=== PATIENT | female | born 1975 | race African-American/Black ===

== ENCOUNTER 2021-03-25 09:59 | Emergency (ER) | payer OTHER ==
[~2021-03-25] VITALS: Ht 172.7 cm; Wt 73.0 kg
[2021-03-25] MEDS ORDERED: MAGNESIUM/ALUMINUM HYDROXIDE/SIMETHICONE 30ML UDC PO STA (10:29)
[2021-03-25] MEDS ORDERED: FAMOTIDINE 20MG/2ML VIAL IV STA (10:29)
[2021-03-25] MEDS ORDERED: AMLO5TAB88 PO (10:29)
[2021-03-25] MEDS ORDERED: SODIUM CHLORIDE 0.9% 1,000 ML IV ONE ×2 (10:30→13:30)
[2021-03-25] MEDS ORDERED: NITROGLYCERIN 0.4MG TABLET SL SL PRN (10:45)
[2021-03-25] MEDS ORDERED: ASPIRIN 325MG EC TABLET PO ONE (10:45)
[2021-03-25 11:07] LABS: BASOPHILS % 1.1 % (0.0-2.0); EOSINOPHILS % 0.8 % (0.0-5.0); HEMOGLOBIN. 12.4 g/dL (12.0-16.0); MEAN CORPUSCULAR HEMOGLOBIN 26.6 pg (28.0-32.0); MEAN PLATELET VOLUME 9.1 fl (7.4-10.4); NEUTROPHILS % 52.1 % (40.0-76.0); PLATELET 251 x1000/uL (130-400); RED BLOOD CELL COUNT 4.65 mill/uL (4.2-5.4); RED CELL DISTRIBUTION WIDTH 13.6 % (11.6-14.6)
[2021-03-25 11:12] LABS: CHLORIDE 109 mEq/L (98-107)
[2021-03-25 11:23] LABS: CLARITY URINE CLEAR (CLEAR); COLOR URINE YELLOW (YELLOW); KETONES URINE NEGATIVE (NEGATIVE); LEUKOCYTE ESTERASE URINE NEGATIVE (NEGATIVE); NITRITE URINE NEGATIVE (NEGATIVE); OCCULT BLOOD URINE NEGATIVE (NEGATIVE); PH URINE 5.5 (4.5-8.0); PROTEIN URINE NEGATIVE (NEGATIVE); SPECIFIC GRAVITY URINE 1.004 (1.005-1.030); UROBILINOGEN URINE 0.2 E.U./dL (0.2-1.0)
[2021-03-25 11:48] LABS: OPIATES URINE SCREEN NEGATIVE (NEGATIVE)
[2021-03-25 11:49] LABS: *AMPHETAMINES SCREEN URINE NEGATIVE (NEGATIVE); *BARBITURATES SCREEN URINE NEGATIVE (NEGATIVE); *BENZODIAZEPINES SCREEN URINE NEGATIVE (NEGATIVE); *COCAINE SCREEN URINE NEGATIVE (NEGATIVE); METHADONE URINE SCREEN NEGATIVE (NEGATIVE); PHENCYCLIDINE URINE SCREEN NEGATIVE (NEGATIVE)
[2021-03-25 11:50] LABS: CANNABINOID URINE SCREEN PRESUMTIVE POSITIVE (NEGATIVE)
[2021-03-25] MEDS ORDERED: MAGNESIUM/ALUMINUM HYDROXIDE/SIMETHICONE 30ML UDC PO NR (12:30)
[2021-03-25] MEDS ORDERED: FAMOTIDINE 20MG/2ML VIAL IV NR (12:30)
[2021-03-25] MEDS ORDERED: KETOROLAC 15MG/ML VIAL IV ONE (14:15)
[2021-03-25] MEDS ORDERED: ONDA4TAB5 MT (14:55)
[2021-03-25 15:23] VITALS: BP 133/81
== END 2021-03-25 15:27 | disposition home or self-care (01) ==
LOC: ER 09:59
DX: R42 Dizziness and giddiness (principal); I10 Essential (primary) hypertension
CPT/HCPCS: 36415; 71045; 80053; 80305; 81003; 82962; 83690; 83880; 84484; 85025; 93005; 96361; 96374; 96375; 99285; J1885; J3490; J7030

== ENCOUNTER 2021-03-26 11:11 | Inpatient (IN) | payer OTHER ==
[~2021-03-26] VITALS: Ht 172.7 cm; Wt 72.6 kg
[~2021-03-26 11:11] MED LIST: AMLO5TAB88 PO; ONDA4TAB5 MT
[2021-03-26] MEDS ORDERED: MECLIZINE 25MG TABLET PO ONE (12:45)
[2021-03-26] MEDS ORDERED: SODIUM CHLORIDE 0.9% 1,000 ML IV ONE (12:45)
[2021-03-26 13:16] LABS: BASOPHILS % 0.7 % (0.0-2.0); EOSINOPHILS % 0.7 % (0.0-5.0); HEMATOCRIT. 38.6 % (36.0-48.0); HEMOGLOBIN. 12.5 g/dL (12.0-16.0); LYMPHOCYTES % 28.8 % (20.0-50.0); MEAN CORPUSCULAR VOLUME 83.4 fL (81.0-99.0); MEAN PLATELET VOLUME 8.2 fl (7.4-10.4); MONOCYTES % 4.5 % (2.0-8.0); NEUTROPHILS % 65.3 % (40.0-76.0); PLATELET 260 x1000/uL (130-400); RED BLOOD CELL COUNT 4.63 mill/uL (4.2-5.4); RED CELL DISTRIBUTION WIDTH 13.9 % (11.6-14.6)
[2021-03-26 13:21] LABS: CHLORIDE 110 mEq/L (98-107)
[2021-03-26] MEDS ORDERED: MECLIZINE 25MG TABLET PO NR (18:10)
[2021-03-26] MEDS ORDERED: ONDANSETRON HCL 4MG/2ML INJ IV PRN (18:45)
[2021-03-26] MEDS ORDERED: DOCUSATE SODIUM 100MG CAPSULE PO PRN (18:45)
[2021-03-26] MEDS ORDERED: CLONIDINE 0.1MG TABLET PO PRN (18:45)
[2021-03-26] MEDS ORDERED: IPRATROPIUM/ALBUTEROL 0.5-3(2.5)MG/3ML NEB HHN PRN (18:45)
[2021-03-26] MEDS ORDERED: ACETAMINOPHEN 325MG TABLET PO PRN ×2 (18:45)
[2021-03-26] MEDS: SODIUM CHLORIDE 0.9% 1,000 ML IV SCH (18:48)
[2021-03-26 19:00] LABS: HCG SCREEN NEGATIVE
[2021-03-26 19:08] LABS: CLARITY URINE CLEAR (CLEAR); COLOR URINE YELLOW (YELLOW); KETONES URINE NEGATIVE (NEGATIVE); LEUKOCYTE ESTERASE URINE NEGATIVE (NEGATIVE); NITRITE URINE NEGATIVE (NEGATIVE); OCCULT BLOOD URINE NEGATIVE (NEGATIVE); PROTEIN URINE NEGATIVE (NEGATIVE); SPECIFIC GRAVITY URINE 1.008 (1.005-1.030)
[2021-03-26 19:20] LABS: *AMPHETAMINES SCREEN URINE NEGATIVE (NEGATIVE); *BARBITURATES SCREEN URINE NEGATIVE (NEGATIVE); *BENZODIAZEPINES SCREEN URINE NEGATIVE (NEGATIVE); *COCAINE SCREEN URINE NEGATIVE (NEGATIVE); METHADONE URINE SCREEN NEGATIVE (NEGATIVE); OPIATES URINE SCREEN NEGATIVE (NEGATIVE)
[2021-03-26 19:21] LABS: PHENCYCLIDINE URINE SCREEN NEGATIVE (NEGATIVE)
[2021-03-26 19:26] LABS: CANNABINOID URINE SCREEN PRESUMTIVE POSITIVE (NEGATIVE)
[2021-03-26 22:25] VITALS: BP 128/87
[2021-03-26] MEDS: HYDROCODONE/ACETAMINOPHEN 5/325MG TABLET PO PRN (22:58)
[2021-03-27] VITALS: BP 117/60
[2021-03-27 04:00] VITALS: BP 122/81
[2021-03-27] MEDS: SODIUM CHLORIDE 0.9% 1,000 ML IV SCH ×3 (05:35→23:55)
[2021-03-27 06:53] LABS: BASOPHILS % 0.8 % (0.0-2.0); EOSINOPHILS % 1.8 % (0.0-5.0); HEMATOCRIT. 34.9 % (36.0-48.0); HEMOGLOBIN. 11.6 g/dL (12.0-16.0); LYMPHOCYTES % 42.6 % (20.0-50.0); MEAN CORPUSCULAR HEMOGLOBIN 27.8 pg (28.0-32.0); MEAN CORPUSCULAR VOLUME 83.8 fL (81.0-99.0); MONOCYTES % 8.3 % (2.0-8.0); NEUTROPHILS % 46.5 % (40.0-76.0); PLATELET 235 x1000/uL (130-400); RED BLOOD CELL COUNT 4.16 mill/uL (4.2-5.4); RED CELL DISTRIBUTION WIDTH 13.5 % (11.6-14.6)
[2021-03-27 06:56] LABS: CHLORIDE 112 mEq/L (98-107)
[2021-03-27 08:00] VITALS: BP_SYST 122; BP_SYST 137; BP_SYST 142; BP_DIAS 76; BP_DIAS 83; BP_DIAS 97
[2021-03-27] MEDS: HYDROCODONE/ACETAMINOPHEN 5/325MG TABLET PO PRN ×2 (10:51→17:40)
[2021-03-27 12:00] VITALS: BP 121/75
[2021-03-27] MEDS: AMLODIPINE 5MG TABLET PO SCH (14:32)
[2021-03-27 16:00] VITALS: BP 135/80
[2021-03-27 20:00] VITALS: BP 126/72
[2021-03-28] VITALS (7 sets, daily range): BP systolic 118–141; BP diastolic 72–91
[2021-03-28] MEDS: HYDROCODONE/ACETAMINOPHEN 5/325MG TABLET PO PRN ×3 (05:38→21:03)
[2021-03-28] MEDS: AMLODIPINE 5MG TABLET PO SCH (08:59)
[2021-03-28 09:06] LABS: LDL CHOLESTEROL 66 mg/dL (5-100)
[2021-03-28 09:08] LABS: HDL CHOLESTEROL 67 mg/dL (40-59)
[2021-03-28 11:10] LABS: CHLORIDE 108 mEq/L (98-107)
[2021-03-28 12:25] LABS: EOSINOPHILS % 1.6 % (0.0-5.0); HEMATOCRIT. 39.4 % (36.0-48.0); HEMOGLOBIN. 12.6 g/dL (12.0-16.0); LYMPHOCYTES % 34.9 % (20.0-50.0); MEAN CORPUSCULAR HEMOGLOBIN 26.7 pg (28.0-32.0); MEAN CORPUSCULAR VOLUME 83.6 fL (81.0-99.0); MEAN PLATELET VOLUME 8.7 fl (7.4-10.4); MONOCYTES % 7.5 % (2.0-8.0); PLATELET 271 x1000/uL (130-400); RED BLOOD CELL COUNT 4.72 mill/uL (4.2-5.4); RED CELL DISTRIBUTION WIDTH 13.5 % (11.6-14.6)
[2021-03-28] MEDS ORDERED: MECLIZINE 12.5MG TABLET PO PRN (15:30)
[2021-03-28] MEDS: SODIUM CHLORIDE 0.9% 1,000 ML IV SCH ×2 (17:20→20:45)
[2021-03-28] MEDS: LORAZEPAM 0.5MG TABLET PO PRN (17:58)
[2021-03-29] VITALS: BP 122/78
[2021-03-29 04:00] VITALS: BP 120/63
[2021-03-29] MEDS: SODIUM CHLORIDE 0.9% 1,000 ML IV SCH (06:09)
[2021-03-29] MEDS: LORAZEPAM 0.5MG TABLET PO PRN (06:09)
[2021-03-29 07:56] VITALS: BP 130/80
[2021-03-29] MEDS: AMLODIPINE 5MG TABLET PO SCH (08:59)
[2021-03-29 12:00] VITALS: BP 123/85
[2021-03-29] MEDS ORDERED: MECL-217 PO (13:38)
[2021-03-29] MEDS ORDERED: LORA-249 MT (13:38)
[2021-03-29 14:39] VITALS: BP 117/78
[2021-03-29 15:54] VITALS: BP 117/78
== END 2021-03-29 17:00 | disposition home or self-care (01) | DRG 74 ==
LOC: ER 11:11 → 7EST 18:14 → ENRESERV 21:09
PROVIDERS: ADMIT Internal Medicine; ATTEND Internal Medicine
DX: G90.9 Disorder of the autonomic nervous system, unspecified (principal); J90 Pleural effusion, not elsewhere classified; I95.1 Orthostatic hypotension; I11.9 Hypertensive heart disease without heart failure; F41.9 Anxiety disorder, unspecified; D64.9 Anemia, unspecified; Z87.442 Personal history of urinary calculi; Z87.891 Personal history of nicotine dependence
CPT/HCPCS: 36415; 71045; 76604; 80048; 80053; 80061; 80305; 81003; 82962; 83735; 83880; 84439; 84443; 84481; 84484; 84703; 85025; 85379; 93005; 93306; 93880; 99285; J7030; J8597

== ENCOUNTER 2021-07-17 00:27 | Emergency (ER) | payer OTHER ==
[~2021-07-17] VITALS: Ht 172.7 cm; Wt 71.0 kg
[~2021-07-17 00:27] MED LIST changes: +LORA-249 MT; +MECL-217 PO
[2021-07-17 00:35] VITALS: BP 146/89
[2021-07-17 01:24] LABS: BASOPHILS % 0.7 % (0.0-2.0); EOSINOPHILS % 1.5 % (0.0-5.0); LYMPHOCYTES % 30.2 % (20.0-50.0); MEAN CORPUSCULAR HEMOGLOBIN 27.5 pg (28.0-32.0); MEAN CORPUSCULAR VOLUME 82.3 fL (81.0-99.0); MEAN PLATELET VOLUME 8.3 fl (7.4-10.4); MONOCYTES % 6.8 % (2.0-8.0); NEUTROPHILS % 60.8 % (40.0-76.0); PLATELET 255 x1000/uL (130-400); RED BLOOD CELL COUNT 4.38 mill/uL (4.2-5.4); RED CELL DISTRIBUTION WIDTH 13.4 % (11.6-14.6)
[2021-07-17 01:31] LABS: CHLORIDE 108 mEq/L (98-107)
[2021-07-17 01:46] LABS: CLARITY URINE CLEAR (CLEAR); COLOR URINE YELLOW (YELLOW); KETONES URINE TRACE (NEGATIVE); LEUKOCYTE ESTERASE URINE NEGATIVE (NEGATIVE); NITRITE URINE NEGATIVE (NEGATIVE); OCCULT BLOOD URINE NEGATIVE (NEGATIVE); PH URINE 6.5 (4.5-8.0); PROTEIN URINE NEGATIVE (NEGATIVE); SPECIFIC GRAVITY URINE 1.028 (1.005-1.030)
[2021-07-17] MEDS ORDERED: MAGNESIUM/ALUMINUM HYDROXIDE/SIMETHICONE 30ML UDC PO ONE (02:00)
[2021-07-17] MEDS ORDERED: FAMOTIDINE 20MG TABLET PO ONE (02:00)
[2021-07-17] MEDS ORDERED: MAG-55 MT (03:16)
[2021-07-17] MEDS ORDERED: FAMO-135 MT (03:16)
[2021-07-18] MEDS ORDERED: MECL-159 MT (03:48)
== END 2021-07-17 03:30 | disposition home or self-care (01) ==
LOC: ER 00:27
DX: R10.13 Epigastric pain (principal); R20.2 Paresthesia of skin; I10 Essential (primary) hypertension
CPT/HCPCS: 36415; 80053; 81003; 85025; 93005; 99284

== ENCOUNTER 2021-07-17 08:29 | Emergency (ER) | payer OTHER ==
[~2021-07-17] VITALS: Ht 172.7 cm; Wt 68.0 kg
[~2021-07-17 08:29] MED LIST changes: +FAMO-135 MT; +MAG-55 MT
[2021-07-17 09:33] VITALS: BP 140/84
[2021-07-18] MEDS ORDERED: MECL-159 MT (03:48)
== END 2021-07-17 09:40 | disposition home or self-care (01) ==
LOC: ER 08:29
DX: G47.30 Sleep apnea, unspecified (principal); I10 Essential (primary) hypertension
CPT/HCPCS: 99281

== ENCOUNTER 2021-07-17 23:27 | Emergency (ER) | payer OTHER ==
[~2021-07-17] VITALS: Ht 172.7 cm; Wt 67.0 kg
[2021-07-18] MEDS ORDERED: SODIUM CHLORIDE 0.9% 1,000 ML IV ONE (00:15)
[2021-07-18] MEDS ORDERED: MECLIZINE 25MG TABLET PO SCH (00:30)
[2021-07-18] MEDS ORDERED: LORAZEPAM 2MG/ML CPJ IV SCH (00:30)
[2021-07-18 01:02] LABS: BASOPHILS % 0.9 % (0.0-2.0); EOSINOPHILS % 1.6 % (0.0-5.0); HEMOGLOBIN. 11.7 g/dL (12.0-16.0); LYMPHOCYTES % 35.3 % (20.0-50.0); MEAN CORPUSCULAR HEMOGLOBIN 27.5 pg (28.0-32.0); MEAN CORPUSCULAR VOLUME 82.3 fL (81.0-99.0); MEAN PLATELET VOLUME 8.2 fl (7.4-10.4); MONOCYTES % 7.6 % (2.0-8.0); NEUTROPHILS % 54.6 % (40.0-76.0); PLATELET 248 x1000/uL (130-400); RED BLOOD CELL COUNT 4.25 mill/uL (4.2-5.4); RED CELL DISTRIBUTION WIDTH 13.2 % (11.6-14.6)
[2021-07-18 01:08] LABS: CHLORIDE 108 mEq/L (98-107)
[2021-07-18 01:14] LABS: ETHANOL BLOOD < 10 mg/dL
[2021-07-18 01:18] LABS: HCG SCREEN NEGATIVE
[2021-07-18] MEDS ORDERED: MECL-159 MT (03:48)
[2021-07-18] MEDS ORDERED: IOHEXOL-350 100 ML BOTTLE ONE (06:19)
[2021-07-18] MEDS ORDERED: ACETAMINOPHEN 160MG/5ML UDC PO ONE (07:15)
[2021-07-18 08:02] VITALS: BP 119/85
[2021-07-18] MEDS ORDERED: MECLIZINE 25MG TABLET PO ONE (09:30)
== END 2021-07-18 09:15 | disposition home or self-care (01) ==
LOC: ER 23:27
DX: R42 Dizziness and giddiness (principal); R55 Syncope and collapse; I10 Essential (primary) hypertension; Z98.890 Other specified postprocedural states; Z79.899 Other long term (current) drug therapy
CPT/HCPCS: 36415; 70496; 70498; 80053; 80320; 82962; 84703; 85025; 93005; 96361; 96374; 99285; J2060; Q9967; J8597; G0480

== ENCOUNTER 2022-11-08 20:53 | Inpatient (IN) | payer OTHER ==
[~2022-11-08] VITALS: Ht 172.7 cm; Wt 87.3 kg
[~2022-11-08 20:53] MED LIST changes: +MECL-159 MT
[2022-11-08 22:12] LABS: BASOPHILS % 0.5 % (0.0-2.0); EOSINOPHILS % 0.9 % (0.0-5.0); HEMATOCRIT. 36.8 % (36.0-48.0); HEMOGLOBIN. 12.3 g/dL (12.0-16.0); LYMPHOCYTES % 10.8 % (20.0-50.0); MEAN CORPUSCULAR HEMOGLOBIN 28.6 pg (28.0-32.0); MEAN CORPUSCULAR VOLUME 85.7 fL (81.0-99.0); MEAN PLATELET VOLUME 8.5 fl (7.4-10.4); MONOCYTES % 6.1 % (2.0-8.0); NEUTROPHILS % 81.7 % (40.0-76.0); PLATELET 233 x1000/uL (130-400); RED CELL DISTRIBUTION WIDTH 14.8 % (11.6-14.6)
[2022-11-08 22:20] LABS: CHLORIDE 104 mEq/L (98-107)
[2022-11-08] MEDS ORDERED: MORPHINE SULFATE 4 MG/ML CPJ (NOT FOR IM USE) IV STA (23:35)
[2022-11-08] MEDS ORDERED: ONDANSETRON HCL 4MG/2ML INJ IV STA (23:35)
[2022-11-08] MEDS ORDERED: SODIUM CHLORIDE 0.9% 1,000 ML IV ONE (23:45)
[2022-11-09 00:44] LABS: CLARITY URINE TURBID (CLEAR); COLOR URINE ORANGE (YELLOW); KETONES URINE TRACE (NEGATIVE); LEUKOCYTE ESTERASE URINE NEGATIVE (NEGATIVE); NITRITE URINE NEGATIVE (NEGATIVE); OCCULT BLOOD URINE NEGATIVE (NEGATIVE); PH URINE 5.5 (4.5-8.0); PROTEIN URINE 2+ (NEGATIVE); SPECIFIC GRAVITY URINE 1.039 (1.005-1.030)
[2022-11-09] MEDS ORDERED: ACETAMINOPHEN 325MG TABLET PO PRN ×2 (03:00)
[2022-11-09] MEDS ORDERED: ONDANSETRON HCL 4MG/2ML INJ IV PRN ×2 (03:00→05:00)
[2022-11-09] MEDS ORDERED: IPRATROPIUM/ALBUTEROL 0.5-3(2.5)MG/3ML NEB HHN PRN (03:00)
[2022-11-09] MEDS ORDERED: CLONIDINE 0.1MG TABLET PO PRN ×2 (03:00→05:00)
[2022-11-09] MEDS ORDERED: SODIUM CHLORIDE 0.9% 1,000 ML IV SCH ×2 (03:00→05:00)
[2022-11-09] MEDS ORDERED: HYDROCODONE/ACETAMINOPHEN 5/325MG TABLET PO PRN ×2 (03:00→05:00)
[2022-11-09] MEDS ORDERED: NALOXONE HCL 0.4MG/ML VIAL IV PRN (03:30)
[2022-11-09] MEDS: PANTOPRAZOLE SODIUM 40 MG/VIAL IV SCH ×3 (03:54→19:41)
[2022-11-09] MEDS: MORPHINE SULFATE 2 MG/ML CPJ (NOT FOR IM USE) IV PRN ×2 (03:55→09:32)
[2022-11-09] MEDS ORDERED: IOHEXOL-300 100 ML BOTTLE ONE (03:57)
[2022-11-09 04:00] VITALS: BP 164/93; PULSE 75; RESP 20; TEMP 99.3
[2022-11-09] MEDS ORDERED: DEXT 5%/0.45% NACL KCL 40MEQ/L 1,000 ML IV NR (04:00)
[2022-11-09] MEDS ORDERED: DEXT 5%/0.45% NACL KCL 40MEQ/L 1,000 ML IV STA (04:52)
[2022-11-09] MEDS ORDERED: MORPHINE SULFATE 2 MG/ML CPJ (NOT FOR IM USE) IV PRN (05:00)
[2022-11-09] MEDS ORDERED: DEXT 5%/0.45% NACL KCL 40MEQ/L 1,000 ML IV SCH (05:45)
[2022-11-09 07:05] LABS: BASOPHILS % 0.4 % (0.0-2.0); EOSINOPHILS % 1.2 % (0.0-5.0); HEMATOCRIT. 36.1 % (36.0-48.0); HEMOGLOBIN. 11.9 g/dL (12.0-16.0); LYMPHOCYTES % 11.7 % (20.0-50.0); MEAN CORPUSCULAR HEMOGLOBIN 28.5 pg (28.0-32.0); MEAN CORPUSCULAR VOLUME 86.1 fL (81.0-99.0); MEAN PLATELET VOLUME 8.5 fl (7.4-10.4); MONOCYTES % 6.9 % (2.0-8.0); NEUTROPHILS % 79.8 % (40.0-76.0); PLATELET 208 x1000/uL (130-400); RED BLOOD CELL COUNT 4.19 mill/uL (4.2-5.4); RED CELL DISTRIBUTION WIDTH 14.7 % (11.6-14.6)
[2022-11-09 08:00] VITALS: BP 128/86; PULSE 81; RESP 18; TEMP 97.6
[2022-11-09 08:10] LABS: CHLORIDE 105 mEq/L (98-107)
[2022-11-09 08:25] LABS: AMYLASE 83 IU/L (25-115); HDL CHOLESTEROL 76 mg/dL (40-59); LDL CHOLESTEROL 87 mg/dL (5-100); T4 FREE 0.96 ng/dL (0.76-1.46)
[2022-11-09] MEDS ORDERED: AMLODIPINE 10MG TABLET PO SCH (09:00)
[2022-11-09] MEDS: ENOXAPARIN 40MG/0.4ML SYR SUBCUT SCH (09:33)
[2022-11-09] MEDS: AMLODIPINE 10MG TABLET PO SCH (09:33)
[2022-11-09] MEDS ORDERED: POTASSIUM CHLORIDE INJ 40 MEQ in DEXT 5% WATER 250 ML IV ONE (11:00)
[2022-11-09 12:00] VITALS: BP 136/84; PULSE 80; RESP 19; TEMP 98
[2022-11-09 12:57] LABS: *AMPHETAMINES SCREEN URINE NEGATIVE (NEGATIVE); *BARBITURATES SCREEN URINE NEGATIVE (NEGATIVE); *BENZODIAZEPINES SCREEN URINE NEGATIVE (NEGATIVE); *COCAINE SCREEN URINE NEGATIVE (NEGATIVE); METHADONE URINE SCREEN NEGATIVE (NEGATIVE); OPIATES URINE SCREEN NEGATIVE (NEGATIVE); PHENCYCLIDINE URINE SCREEN NEGATIVE (NEGATIVE)
[2022-11-09 12:59] LABS: CANNABINOID URINE SCREEN PRESUMTIVE POSITIVE (NEGATIVE)
[2022-11-09] MEDS: DEXT 5%/0.9% NACL 1,000 ML IV SCH ×3 (15:55→23:35)
[2022-11-09 16:00] VITALS: BP 145/89; PULSE 71; RESP 16; TEMP 98.2
[2022-11-09 16:36] LABS: CHLORIDE 106 mEq/L (98-107)
[2022-11-09 16:41] LABS: ETHANOL BLOOD < 10 mg/dL (-10)
[2022-11-09 20:00] VITALS: BP 147/88; PULSE 65; RESP 18; TEMP 97.2
[2022-11-10] VITALS: BP 142/90; PULSE 77; RESP 18; TEMP 97.3
[2022-11-10 04:00] VITALS: BP 127/85; PULSE 69; RESP 18; TEMP 97.3
[2022-11-10 05:45] LABS: BASOPHILS % 0.5 % (0.0-2.0); EOSINOPHILS % 2.3 % (0.0-5.0); HEMATOCRIT. 34.4 % (36.0-48.0); HEMOGLOBIN. 11.2 g/dL (12.0-16.0); LYMPHOCYTES % 16.9 % (20.0-50.0); MEAN CORPUSCULAR HEMOGLOBIN 28.3 pg (28.0-32.0); MEAN CORPUSCULAR VOLUME 86.7 fL (81.0-99.0); MEAN PLATELET VOLUME 8.9 fl (7.4-10.4); MONOCYTES % 8.5 % (2.0-8.0); NEUTROPHILS % 71.8 % (40.0-76.0); PLATELET 222 x1000/uL (130-400); RED BLOOD CELL COUNT 3.96 mill/uL (4.2-5.4); RED CELL DISTRIBUTION WIDTH 14.9 % (11.6-14.6)
[2022-11-10] MEDS: DEXT 5%/0.9% NACL 1,000 ML IV SCH (06:10)
[2022-11-10 06:28] LABS: CHLORIDE 109 mEq/L (98-107)
[2022-11-10] MEDS: AMLODIPINE 10MG TABLET PO SCH (09:53)
[2022-11-10] MEDS: ENOXAPARIN 40MG/0.4ML SYR SUBCUT SCH (09:54)
[2022-11-10] MEDS ORDERED: AMLODIPINE 5MG TABLET PO SCH (11:30)
[2022-11-10 11:33] LABS: CLARITY URINE CLOUDY (CLEAR); COLOR URINE DARK YELLOW (YELLOW); KETONES URINE TRACE (NEGATIVE); LEUKOCYTE ESTERASE URINE NEGATIVE (NEGATIVE); NITRITE URINE NEGATIVE (NEGATIVE); OCCULT BLOOD URINE NEGATIVE (NEGATIVE); PH URINE 5.5 (4.5-8.0); PROTEIN URINE 1+ (NEGATIVE); SPECIFIC GRAVITY URINE 1.026 (1.005-1.030)
[2022-11-10] MEDS ORDERED: SULF1TAB48 MT (12:46)
[2022-11-10] MEDS ORDERED: CEFTRIAXONE 1,000 MG in DEXTROSE 5% WATER 50 ML IV SCH (13:00)
[2022-11-10 15:19] VITALS: BP 138/80; PULSE 74; TEMP 98.1; O2SAT 100
[2022-11-11] MEDS ORDERED: FAMOTIDINE 20MG/2ML VIAL IV SCH (09:00)
[2022-11-11] MEDS ORDERED: AMLODIPINE 5MG TABLET PO SCH (09:00)
== END 2022-11-10 17:10 | disposition home or self-care (01) | DRG 439 ==
LOC: ER 20:53 → 8WST 11-09 02:00 → EDBEDREQTM 11-09 02:17 → EDBEDREQ 11-09 02:17 → ENRESERV 11-09 02:28 → EDBEDREQSVC 11-09 03:24 → ENRESERV 11-09 03:44 → ER 11-09 04:06
PROVIDERS: ADMIT Internal Medicine; ATTEND Internal Medicine
DX: K85.90 Acute pancreatitis without necrosis or infection, unspecified (principal); N39.0 Urinary tract infection, site not specified; I10 Essential (primary) hypertension; E87.6 Hypokalemia; R73.9 Hyperglycemia, unspecified; F41.9 Anxiety disorder, unspecified
CPT/HCPCS: 36415; 74177; 76705; 80048; 80053; 80061; 80305; 80320; 81003; 82150; 82962; 83036; 83605; 84145; 84439; 84443; 85025; 99285; C9113; J0696; J1650; J2270; J2405; J7030; J7042; J7060; Q9967; G0480

== ENCOUNTER 2022-12-26 11:04 | Inpatient (IN) | payer OTHER ==
[~2022-12-26] VITALS: Ht 172.7 cm; Wt 89.8 kg
[~2022-12-26 11:04] MED LIST changes: -LORA-249 MT; +SULF1TAB48 MT
[2022-12-26 11:56] LABS: BASOPHILS % 0.4 % (0.0-2.0); EOSINOPHILS % 0.3 % (0.0-5.0); HEMATOCRIT. 40.4 % (36.0-48.0); HEMOGLOBIN. 13.6 g/dL (12.0-16.0); LYMPHOCYTES % 11.3 % (20.0-50.0); MEAN CORPUSCULAR HEMOGLOBIN 28.7 pg (28.0-32.0); MEAN CORPUSCULAR HGB CONC 33.7 g/dL (31.0-37.0); MEAN PLATELET VOLUME 8.3 fl (7.4-10.4); PLATELET 278 x1000/uL (130-400); RED BLOOD CELL COUNT 4.75 mill/uL (4.2-5.4); RED CELL DISTRIBUTION WIDTH 15.7 % (11.6-14.6); WHITE BLOOD COUNT 9.3 x1000/uL (4.5-11.0)
[2022-12-26 12:03] LABS: CHLORIDE 105 mEq/L (98-107); INDEX HEMOLYSI 1 (1-3); INDEX ICTERIC 1 (1-4); INDEX LIPEMIC 1 (1-3); POTASSIUM 3.2 mEq/L (3.5-5.1); SODIUM 133 mEq/L (136-145)
[2022-12-26 12:09] LABS: ALANINE AMINOTRANSFERASE 35 IU/L (13-61); ALBUMIN 4.1 g/dL (3.4-5.0); ASPARTATE AMINOTRANSFERASE 26 IU/L (15-37); CALCIUM 9.4 mg/dL (8.5-10.1); CARBON DIOXIDE 25 mEq/L (21-32); CREATININE 0.6 mg/dL (0.6-1.3); GLUCOSE 161 mg/dL (70-105); PROTEIN TOTAL 7.9 g/dL (6.0-8.3); UREA NITROGEN BLOOD 8 mg/dL (7-21)
[2022-12-26] MEDS ORDERED: KETOROLAC 30MG/ML VIAL IV STA (12:33)
[2022-12-26] MEDS ORDERED: SODIUM CHLORIDE 0.9% 1,000 ML IV ONE (12:45)
[2022-12-26 13:42] LABS: HCG SCREEN NEGATIVE
[2022-12-26] MEDS ORDERED: KETOROLAC 15MG/ML VIAL IV NR (15:15)
[2022-12-26] MEDS ORDERED: MORPHINE SULFATE 4 MG/ML CPJ (NOT FOR IM USE) IV STA (15:31)
[2022-12-26] MEDS ORDERED: ONDANSETRON HCL 4MG/2ML INJ IV STA (15:31)
[2022-12-26 16:07] LABS: CLARITY URINE CLOUDY (CLEAR); COLOR URINE DARK YELLOW (YELLOW); GLUCOSE URINE 2+ (NEGATIVE); KETONES URINE 3+ (NEGATIVE); LEUKOCYTE ESTERASE URINE NEGATIVE (NEGATIVE); NITRITE URINE NEGATIVE (NEGATIVE); OCCULT BLOOD URINE NEGATIVE (NEGATIVE); PH URINE 5.5 (4.5-8.0); PROTEIN URINE 1+ (NEGATIVE); SPECIFIC GRAVITY URINE 1.042 (1.005-1.030)
[2022-12-26 16:09] LABS: SQUAMOUS EPITHELIAL CELL URINE 2+ /lpf (RARE/1+); WBC URINE 0-2 /hpf (0-2)
[2022-12-26 16:48] LABS: BACTERIA URINE 2+; RBC URINE 0-2 /hpf (0-2)
[2022-12-26 16:49] LABS: YEAST URINE FEW
[2022-12-26] MEDS ORDERED: MORPHINE SULFATE 2 MG/ML CPJ (NOT FOR IM USE) IV ONE (17:00)
[2022-12-26] MEDS ORDERED: AMLODIPINE 5MG TABLET PO ONE (18:45)
[2022-12-26] MEDS ORDERED: NALOXONE HCL 0.4MG/ML VIAL IV PRN (19:15)
[2022-12-26] MEDS ORDERED: DIPHENHYDRAMINE 50MG/ML VIAL IV PRN (19:15)
[2022-12-26] MEDS ORDERED: CLONIDINE 0.1MG TABLET PO PRN (19:15)
[2022-12-26] MEDS: MORPHINE SULFATE 4 MG/ML CPJ (NOT FOR IM USE) IV PRN ×2 (19:40→21:33)
[2022-12-26 20:00] VITALS: BP 176/87; PULSE 82; RESP 18; TEMP 98.2
[2022-12-26] MEDS ORDERED: SODIUM CHL 0.45% + KCL 20MEQ/L 1,000 ML IV SCH (20:00)
[2022-12-27] VITALS (9 sets, daily range): BP systolic 158–193; BP diastolic 69–121; PULSE 80–114; RESP 18–20; TEMP 97.5–98
[2022-12-27] MEDS: MORPHINE SULFATE 4 MG/ML CPJ (NOT FOR IM USE) IV PRN ×6 (00:01→22:13)
[2022-12-27] MEDS: LORAZEPAM 2MG/ML CPJ IV PRN ×2 (02:20→15:51)
[2022-12-27] MEDS: SODIUM CHL 0.45% + KCL 20MEQ/L 1,000 ML IV SCH ×2 (05:19→17:15)
[2022-12-27 07:22] LABS: HEMATOCRIT. 41.7 % (36.0-48.0); HEMOGLOBIN. 13.9 g/dL (12.0-16.0); MEAN CORPUSCULAR HEMOGLOBIN 28.5 pg (28.0-32.0); MEAN CORPUSCULAR HGB CONC 33.4 g/dL (31.0-37.0); MEAN CORPUSCULAR VOLUME 85.4 fL (81.0-99.0); MEAN PLATELET VOLUME 9.5 fl (7.4-10.4); PLATELET 224 x1000/uL (130-400); RED BLOOD CELL COUNT 4.88 mill/uL (4.2-5.4); RED CELL DISTRIBUTION WIDTH 15.4 % (11.6-14.6); WHITE BLOOD COUNT 12.4 x1000/uL (4.5-11.0)
[2022-12-27 07:31] LABS: DIFFERENTIAL COMMENT 1
[2022-12-27 07:55] LABS: CHLORIDE 100 mEq/L (98-107); INDEX HEMOLYSI 2 (1-3); INDEX ICTERIC 1 (1-4); INDEX LIPEMIC 1 (1-3); POTASSIUM 3.3 mEq/L (3.5-5.1); SODIUM 131 mEq/L (136-145)
[2022-12-27 08:13] LABS: ALANINE AMINOTRANSFERASE 24 IU/L (13-61); ALBUMIN 3.5 g/dL (3.4-5.0); ASPARTATE AMINOTRANSFERASE 23 IU/L (15-37); BILIRUBIN TOTAL 0.7 mg/dL (0.1-1.0); CALCIUM 9.3 mg/dL (8.5-10.1); CARBON DIOXIDE 22 mEq/L (21-32); CREATININE 0.4 mg/dL (0.6-1.3); GLUCOSE 138 mg/dL (70-105); PHOSPHORUS 3.1 mg/dL (2.5-4.9); PROTEIN TOTAL 7.8 g/dL (6.0-8.3); UREA NITROGEN BLOOD 4 mg/dL (7-21)
[2022-12-27 10:59] LABS: PLATELET ESTIMATE NORMAL
[2022-12-27] MEDS ORDERED: ONDANSETRON HCL 4MG/2ML INJ IV PRN (13:30)
[2022-12-27] MEDS: CLONIDINE 0.2MG TABLET PO PRN ×2 (14:18→23:45)
[2022-12-27 15:49] LABS: HEPATITIS B SURFACE ANTIGEN NEGATIVE
[2022-12-27 16:15] LABS: HEPATITIS C VIR.AB 0.11 INDEXVAL (0.00-0.80)
[2022-12-27 16:16] LABS: HEPATITIS B CORE AB IGM NEGATIVE
[2022-12-27] MEDS: METOCLOPRAMIDE HCL 10MG/2ML VIAL IV SCH ×2 (17:15→23:48)
[2022-12-27 17:49] LABS: HEPATITIS A AB IGM NEGATIVE (NEGATIVE)
[2022-12-28] VITALS: BP 164/105; PULSE 89; RESP 20; TEMP 98.2
[2022-12-28] MEDS: SODIUM CHL 0.45% + KCL 20MEQ/L 1,000 ML IV SCH ×2 (02:25→12:56)
[2022-12-28] MEDS: MORPHINE SULFATE 4 MG/ML CPJ (NOT FOR IM USE) IV PRN (02:48)
[2022-12-28 04:00] VITALS: BP 133/99; PULSE 94; RESP 20; TEMP 98.5
[2022-12-28] MEDS: METOCLOPRAMIDE HCL 10MG/2ML VIAL IV SCH ×2 (06:35→12:56)
[2022-12-28 08:00] VITALS: BP 126/88; PULSE 94; RESP 20; TEMP 96.3
[2022-12-28] MEDS ORDERED: PANTOPRAZOLE SODIUM 40 MG/VIAL IV SCH (09:00)
[2022-12-28 12:00] VITALS: BP 17/82; PULSE 84; RESP 21; TEMP 97.4
[2022-12-28] MEDS ORDERED: HYDROCODONE/ACETAMINOPHEN 10/325MG TABLET PO PRN ×2 (13:15→13:30)
[2022-12-28] MEDS ORDERED: MORPHINE SULFATE 4 MG/ML CPJ (NOT FOR IM USE) IV PRN ×2 (13:15→13:45)
[2022-12-28 13:40] VITALS: RESP 21
[2022-12-28 14:53] VITALS: BP 117/82; PULSE 82; TEMP 97.1; O2SAT 99
== END 2022-12-28 15:28 | disposition home or self-care (01) | DRG 439 ==
LOC: ER 11:04 → EDBEDREQ 14:55 → 6EST 16:26 → EDBEDREQ 16:46 → EDBEDREQTM 16:46
PROVIDERS: ADMIT Internal Medicine; ATTEND Internal Medicine
DX: K85.90 Acute pancreatitis without necrosis or infection, unspecified (principal); E87.1 Hypo-osmolality and hyponatremia; K76.0 Fatty (change of) liver, not elsewhere classified; I10 Essential (primary) hypertension; E87.6 Hypokalemia; F10.10 Alcohol abuse, uncomplicated; E11.65 Type 2 diabetes mellitus with hyperglycemia; Z79.4 Long term (current) use of insulin
CPT/HCPCS: 36415; 76705; 80053; 81003; 83735; 84100; 84703; 85025; 86705; 86709; 86803; 87340; 99285; C9113; J1885; J2060; J2270; J2405; J2765; J3480; J7030